=== PATIENT | male | born 1945 | race Caucasian/White ===

== ENCOUNTER → 2022-11-07 | Outpatient (CLI) | payer MEDICARE, OTHER | END | disposition short-term general hospital (02) | LOC: EMS 10:03 | DX: R53.1 Weakness (principal); R47.81 Slurred speech; R29.810 Facial weakness; R20.0 Anesthesia of skin; R51.9 Headache, unspecified; R42 Dizziness and giddiness | CPT/HCPCS: A0425; A0429 ==